=== PATIENT | female | born 1990 | race Asian ===

== ENCOUNTER 2021-04-29 11:26 | Emergency (ER) | payer BC ==
[~2021-04-29 11:26] MED LIST: Iopamidol-370 76% 500 ML 1 ML ONE
[2021-04-29 12:03] LABS: #Eosinphils 0.1 thou/uL (0.0-0.7); #Monocytes 0.3 thou/uL (0.11-0.59); #Neutrophils 4.3 thou/uL (1.40-6.50); %Basophils 0.1 % (0.0-1.0); %Eosinophils 1.3 % (0.0-10.0); %Lymphocytes 16.9 % (21.0-51.0); %Monocytes 5.6 % (0.0-10.0); Hemoglobin 13.6 g/dL (12.0-16.0); Mean Corpuscular HGB CONC 32.8 g/dL (32.0-36.0); Mean Corpuscular Hemoglobin 29.1 pg (27.0-31.0); Mean Corpuscular Volume 88.6 fL (78.0-98.0); Mean Platelet Volume 7.6 fL (7.4-10.4); Platelet Count 220 thou/uL (130-400); RBC Distribution Width 11.1 % (11.5-14.5); Red Blood Cell (RBC) Count 4.69 mill/uL (4.20-5.40); White Blood Cell (WBC) Count 5.7 thou/uL (4.8-10.8)
[2021-04-29 12:12] LABS: BHCG - Serum Negative (NEGATIVE); Pregs Control Background? CLEAR/WHITE (CLR/WHITE); Pregs Control Bar Appear? YES (CONTROL BAR)
[2021-04-29 12:29] LABS: ALT (SGPT) 16 U/L (8-55); AST (SGOT) 16 U/L (5-34); Albumin 4.3 g/dL (3.5-5.0); Alkaline Phosphatase 48 U/L (40-110); Anion Gap 11 mmol/L (10-20); BUN (Urea Nitrogen) 16 mg/dL (7.0-18.7); Bilirubin, Total 0.5 mg/dL (0.2-1.2); Calc. Creatinine Clearance 0 mL/min (70-130); Calcium 9.6 mg/dL (7.8-10.44); Carbon Dioxide 26 mmol/L (22-29); Chloride 103 mmol/L (98-107); Glucose 107 mg/dL (70-105); Lipase 10 U/L (8-78); Potassium 4.1 mmol/L (3.5-5.1); Protein, Total 7.3 g/dL (6.0-8.3); Sodium 136 mmol/L (136-145)
[2021-04-29 13:28] LABS: Bilirubin Negative (Negative); Blood, Urine Negative (Negative); Clarity Clear (Clear); Glucose, Urine (Dipstick) Normal (Negative); Ketone, Urine Negative (Negative); Leukocyte 250 Leu/uL (Negative); Nitrite Negative (Negative); Protein, Urine (Dipstick) Negative (Neg-Trace); RBC/HPF 0-3 HPF (0-3); Specific Gravity, Urine 1.015 (1.002-1.036); Squamous Epithelial 0-3 HPF (0-3); Urobilinogen Normal mg/dL (Less than 2); WBC/HPF 0-3 HPF (0-3)
[2021-04-29 13:29] LABS: Bacteria/HPF 1+ HPF (None Seen)
[2021-04-29] MEDS ORDERED: Lidocaine Viscous Sol 2% 15 ml UD Cup ONE (13:30)
[2021-04-29] MEDS ORDERED: Famotidine/PF 20 mg/2ml Vial ONE (13:30)
[2021-04-29] MEDS ORDERED: Mag-Al 1200 mg/1200 mg/30 ML UDCUP ONE (13:30)
[2021-04-29] MEDS ORDERED: Morphine 4 MG/ML VIAL ONE (15:48)
== END 2021-04-29 17:31 | disposition home or self-care (01) ==
LOC: ERS 11:26
DX: R10.12 Left upper quadrant pain (principal)
CPT/HCPCS: 36415; 74177; 80053; 81003; 81015; 83690; 84703; 85025; 93005; 94760; 96374; 96375; J2270; S0028